=== PATIENT | male | born 1935 | race Caucasian/White ===

== ENCOUNTER 2020-11-22 11:11 | Emergency (ER) | payer MEDICARE, BC ==
[2020-11-22] MEDS ORDERED: Bacitracin 1 PK ONE (11:41)
[2020-11-22] MEDS ORDERED: Boostrix 0.5 ML (Tdap) VIAL ONE (11:49)
== END 2020-11-22 11:54 | disposition home or self-care (01) ==
LOC: ERS 11:11
DX: S51.002A Unspecified open wound of left elbow, initial encounter (principal); I48.91 Unspecified atrial fibrillation; I10 Essential (primary) hypertension; X58.XXXA Exposure to other specified factors, initial encounter
CPT/HCPCS: 90471; 90715

== ENCOUNTER 2021-05-23 19:10 | Emergency (ER) | payer OTHER, MEDICARE, BC ==
[2021-05-23] MEDS ORDERED: Acetaminophen 500 MG TAB ONE (19:31)
== END 2021-05-23 21:50 | disposition home or self-care (01) ==
LOC: ERS 19:10
DX: S51.011A Laceration without foreign body of right elbow, initial encounter (principal); I10 Essential (primary) hypertension; I48.91 Unspecified atrial fibrillation; W01.0XXA Fall on same level from slipping, tripping and stumbling without subsequent striking against object, initial encounter

== ENCOUNTER 2021-09-15 20:01 | Emergency (ER) | payer MEDICARE, BC ==
[2021-09-15 21:10] LABS: #Lymphocytes 1.7 thou/uL (1.20-3.40); #Monocytes 1.3 thou/uL (0.11-0.59); #Neutrophils 8.5 thou/uL (1.40-6.50); %Basophils 0.3 % (0.0-1.0); %Eosinophils 0.2 % (0.0-10.0); %Neutrophils 73.5 % (42.0-75.0); Hemoglobin 12.9 g/dL (14.0-18.0); Mean Corpuscular HGB CONC 32.6 g/dL (32.0-36.0); Mean Corpuscular Hemoglobin 31.5 pg (27.0-31.0); Mean Corpuscular Volume 96.4 fL (78.0-98.0); Platelet Count 137 thou/uL (130-400); RBC Distribution Width 12.8 % (11.5-14.5); Red Blood Cell (RBC) Count 4.11 mill/uL (4.70-6.10); White Blood Cell (WBC) Count 11.5 thou/uL (4.8-10.8)
[2021-09-15] MEDS ORDERED: Lorazepam 2 MG/ML VIAL ONE (21:11)
[2021-09-15 21:29] LABS: ALT (SGPT) 13 U/L (8-55); AST (SGOT) 17 U/L (5-34); Albumin 3.9 g/dL (3.4-4.8); Alkaline Phosphatase 111 U/L (40-110); Anion Gap 12 mmol/L (10-20); BUN (Urea Nitrogen) 25 mg/dL (8.4-25.7); Bilirubin, Total 0.6 mg/dL (0.2-1.2); Calc. Creatinine Clearance 0 mL/min (70-130); Calcium 9.3 mg/dL (7.8-10.44); Carbon Dioxide 27 mmol/L (23-31); Chloride 103 mmol/L (98-107); Globulin 3.7 g/dL (2.4-3.5); Glucose 130 mg/dL (83-110); Potassium 4.2 mmol/L (3.5-5.1); Protein, Total 7.6 g/dL (5.8-8.1); Sodium 138 mmol/L (136-145)
[2021-09-15] MEDS ORDERED: Piperacillin/Tazobactam 4.5 GM in Sodium Chloride 0.9% 100 ML IVPB SCH (22:15)
[2021-09-15 23:31] LABS: Bacteria/HPF None Seen HPF (None Seen); Bilirubin Negative (Negative); Blood, Urine 2+ (Negative); Clarity Clear (Clear); Glucose, Urine (Dipstick) Normal (Negative); Ketone, Urine Negative (Negative); Leukocyte Negative Leu/uL (Negative); Nitrite Negative (Negative); Protein, Urine (Dipstick) 10 mg/dL (Neg-Trace); Specific Gravity, Urine 1.026 (1.002-1.036); Squamous Epithelial 0-3 HPF (0-3); Urobilinogen Normal mg/dL (Less than 2); WBC/HPF 0-3 HPF (0-3); pH, Urine 5.5 (5.0-9.0)
[2021-09-15 23:58] LABS: Lactic Acid 0.6 mmol/L (0.5-2.2)
== END 2021-09-16 00:18 | disposition short-term general hospital (02) ==
LOC: ERS 20:01
DX: A41.9 Sepsis, unspecified organism (principal); J69.0 Pneumonitis due to inhalation of food and vomit; Z79.899 Other long term (current) drug therapy; Z79.82 Long term (current) use of aspirin; I48.91 Unspecified atrial fibrillation; I10 Essential (primary) hypertension
CPT/HCPCS: 36415; 51701; 70450; 71045; 72125; 72170; 80053; 81003; 81015; 83605; 85025; 87040; 87077; 87086; 87149; 93005; 96361; 96365; 96375; J2060; J2543; J3490

== ENCOUNTER 2021-11-26 13:04 | Inpatient (IN) | payer MEDICARE, BC ==
[~2021-11-26 13:04] MED LIST: Iopamidol-370 76% 500 ML 1 ML ONE
[2021-11-26] MEDS ORDERED: Piperacillin/Tazobactam 4.5 GM VIAL ONE (13:38)
[2021-11-26 13:49] LABS: Hemoglobin 13.3 g/dL (14.0-18.0); Mean Corpuscular HGB CONC 31.4 g/dL (32.0-36.0); Mean Corpuscular Volume 98.9 fL (78.0-98.0); Platelet Count 117 thou/uL (130-400); RBC Distribution Width 13.2 % (11.5-14.5); Red Blood Cell (RBC) Count 4.28 mill/uL (4.70-6.10); White Blood Cell (WBC) Count 1.1 thou/uL (4.8-10.8)
[2021-11-26] MEDS ORDERED: Acetaminophen 325 MG TAB ONE (13:52)
[2021-11-26 13:59] LABS: INR-International Normal Ratio 1.2; Prothrombin Time 14.8 sec (12.0-14.7)
[2021-11-26 14:00] LABS: PTT 30.2 sec (22.9-36.1)
[2021-11-26 14:01] LABS: Actual Bicarbonate (HCO3v) 22 mEq/L (22-28); Analyzer IN Cardio ER; Base Excess -1.9 mEq/L (-2.0 to +3.0); Calcium, Ionized (venous) 1.07 mmol/L (1.16-1.32); Chloride (VBG) 109 mmol/L (98-106); Hemoglobin (Hb) 14.4 g/dL (12.6-17.4); Potassium (VBG) 3.56 mmol/L (3.70-5.30); Sodium 144.4 mmol/L (133-146); pH (venous) 7.42 (7.32-7.43)
[2021-11-26] MEDS ORDERED: Vancomycin HCl 500 MG VIAL ONE (14:10)
[2021-11-26] MEDS ORDERED: Vancomycin 1 GM/200 ML BAG ONE (14:10)
[2021-11-26 14:19] LABS: ALT (SGPT) 19 U/L (8-55); AST (SGOT) 31 U/L (5-34); Alkaline Phosphatase 133 U/L (40-110); Anion Gap 21 mmol/L (10-20); BUN (Urea Nitrogen) 36 mg/dL (8.4-25.7); Bilirubin, Total 0.8 mg/dL (0.2-1.2); CK (CPK) 207 U/L (30-200); Calc. Creatinine Clearance 0 mL/min (70-130); Calcium 9.6 mg/dL (7.8-10.44); Carbon Dioxide 19 mmol/L (23-31); Chloride 107 mmol/L (98-107); Estimated GFR 57; Globulin 4.4 g/dL (2.4-3.5); Glucose 126 mg/dL (83-110); Lipase 10 U/L (8-78); Magnesium 2.1 mg/dL (1.6-2.6); Potassium 3.6 mmol/L (3.5-5.1); Protein, Total 8.4 g/dL (5.8-8.1); Sodium 143 mmol/L (136-145)
[2021-11-26 14:24] LABS: Phosphorus 1.4 mg/dL (2.3-4.7)
[2021-11-26 14:27] LABS: Band 20 % (5-11); Lymphocytes 28 % (21-51); MDiff Complete? YES; Neutrophil 51 % (42-75); Platelet Morphology Comment Appears Decreased; Polychromasia SLIGHT = 2-3 cells (100X) (0-2/hpf); Reflex for Review?? YES
[2021-11-26 16:43] LABS: Bilirubin Negative (Negative); Blood, Urine 2+ (Negative); Clarity Clear (Clear); Glucose, Urine (Dipstick) Normal (Negative); Ketone, Urine Negative (Negative); Leukocyte 25 Leu/uL (Negative); Nitrite Negative (Negative); Protein, Urine (Dipstick) 20 mg/dL (Neg-Trace); Specific Gravity, Urine 1.018 (1.002-1.036); Squamous Epithelial 0-3 HPF (0-3); Urobilinogen Normal mg/dL (Less than 2)
[2021-11-26 16:45] LABS: Bacteria/HPF 1+ HPF (None Seen)
[2021-11-26 17:34] LABS: Lactic Acid 5.1 mmol/L (0.5-2.2)
[2021-11-26] MEDS ORDERED: Acetaminophen 325 MG TAB PO PRN (17:39)
[2021-11-26] MEDS ORDERED: Piperacillin/Tazobactam 3.375 GM in Sodium Chloride 0.9% 100 ML IVPB SCH (18:00)
[2021-11-26] MEDS ORDERED: Potassium Chloride 20 MEQ in Lactated Ringer's 1,000 ML IV SCH (18:00)
[2021-11-26] MEDS ORDERED: Ondansetron PF 4 MG/2 ML Vial ONE (18:21)
[2021-11-26] MEDS ORDERED: Piperacillin/Tazobactam 3.375 GM VIAL ONE (19:27)
[2021-11-26] MEDS: Piperacillin/Tazobactam 3.375 GM in Sodium Chloride 0.9% 100 ML IVPB SCH (19:33)
[2021-11-26] MEDS ORDERED: Digoxin 0.5 MG/2 ML AMP SLOW IVP SCH (20:15)
[2021-11-26 21:27] LABS: SARS-CoV-2 NAA Rapid Test DETECTED (NotDetected)
[2021-11-26] MEDS ORDERED: Acetaminophen 650 MG Suppository ONE (21:27)
[2021-11-26] MEDS: Potassium Chloride 20 MEQ in Lactated Ringer's 1,000 ML IV SCH (22:17)
[2021-11-26 22:37] VITALS: BMI 23.2
[2021-11-27] MEDS: Piperacillin/Tazobactam 3.375 GM in Sodium Chloride 0.9% 100 ML IVPB SCH ×2 (01:45→10:11)
[2021-11-27] MEDS ORDERED: Sodium Chloride 0.9% 250 ML IV SCH (04:15)
[2021-11-27 05:20] LABS: ALT (SGPT) 25 U/L (8-55); AST (SGOT) 47 U/L (5-34); Albumin 2.9 g/dL (3.4-4.8); Alkaline Phosphatase 92 U/L (40-110); Anion Gap 17 mmol/L (10-20); BUN (Urea Nitrogen) 39 mg/dL (8.4-25.7); Bilirubin, Total 0.6 mg/dL (0.2-1.2); Calc. Creatinine Clearance 32 mL/min (70-130); Calcium 8.1 mg/dL (7.8-10.44); Carbon Dioxide 19 mmol/L (23-31); Chloride 112 mmol/L (98-107); Estimated GFR 37; Globulin 2.9 g/dL (2.4-3.5); Glucose 89 mg/dL (83-110); Potassium 3.8 mmol/L (3.5-5.1); Protein, Total 5.8 g/dL (5.8-8.1); Sodium 144 mmol/L (136-145)
[2021-11-27] MEDS: Potassium Chloride 20 MEQ in Lactated Ringer's 1,000 ML IV SCH (05:46)
[2021-11-27 05:47] LABS: Lactic Acid 3.1 mmol/L (0.5-2.2)
[2021-11-27 06:02] LABS: Band 43 % (5-11); Hemoglobin 9.9 g/dL (14.0-18.0); Hypochromia SLIGHT = 6-15 cells (100X) (0-5/hpf); Lymphocytes 10 % (21-51); MDiff Complete? YES; Mean Corpuscular HGB CONC 32.4 g/dL (32.0-36.0); Mean Corpuscular Hemoglobin 31.8 pg (27.0-31.0); Mean Corpuscular Volume 98.1 fL (78.0-98.0); Mean Platelet Volume 8.8 fL (7.4-10.4); Monocytes 2 % (0-10); Neutrophil 45 % (42-75); Platelet Count 95 thou/uL (130-400); Platelet Morphology Comment Appears Decreased; RBC Distribution Width 13.3 % (11.5-14.5); Red Blood Cell (RBC) Count 3.13 mill/uL (4.70-6.10); White Blood Cell (WBC) Count 21.4 thou/uL (4.8-10.8)
[2021-11-27] MEDS ORDERED: Lorazepam 2 MG/ML VIAL SLOW IVP PRN (12:27)
[2021-11-27 21:06] VITALS: BP 148/77; TEMP 99.1
== END 2021-11-27 21:37 | disposition hospice, home (50) | DRG 871 ==
LOC: ERS 13:04 → ERHOLD 17:02 → 2NO 22:14
PROVIDERS: ADMIT Student in an Organized Health Care Education/Training Program; ATTEND Student in an Organized Health Care Education/Training Program
PROC: 5A2204Z Restoration of Cardiac Rhythm, Single (ICD-10-PCS; principal; 2021-11-26)
PROC: 8E0ZXY6 Isolation (ICD-10-PCS; 2021-11-26)
PROC: 3E03329 Introduction of Other Anti-infective into Peripheral Vein, Percutaneous Approach (ICD-10-PCS; 2021-11-26)
DX: A41.9 Sepsis, unspecified organism (principal); S32.401A Unspecified fracture of right acetabulum, initial encounter for closed fracture; U07.1 COVID-19; R65.21 Severe sepsis with septic shock; D61.818 Other pancytopenia; Z66 Do not resuscitate; Z51.5 Encounter for palliative care; J45.909 Unspecified asthma, uncomplicated; Z96.1 Presence of intraocular lens; I48.0 Paroxysmal atrial fibrillation; F03.90 Unspecified dementia, unspecified severity, without behavioral disturbance, psychotic disturbance, mood disturbance, and anxiety; W18.30XA Fall on same level, unspecified, initial encounter; E86.0 Dehydration; S30.0XXA Contusion of lower back and pelvis, initial encounter; M89.9 Disorder of bone, unspecified; E03.9 Hypothyroidism, unspecified; I10 Essential (primary) hypertension; M10.9 Gout, unspecified; Z96.653 Presence of artificial knee joint, bilateral; E83.39 Other disorders of phosphorus metabolism; Z78.1 Physical restraint status; Z91.013 Allergy to seafood; Z79.82 Long term (current) use of aspirin; Z79.899 Other long term (current) drug therapy; Z98.890 Other specified postprocedural states; Z87.891 Personal history of nicotine dependence; Z98.49 Cataract extraction status, unspecified eye; Z85.46 Personal history of malignant neoplasm of prostate
CPT/HCPCS: 36415; 70450; 71045; 72125; 74177; 80053; 81003; 81015; 82550; 82805; 83605; 83690; 83735; 84100; 84145; 84443; 84484; 85025; 85060; 85610; 85730; 87040; 87077; 87086; 87149; 87186; 93005; 94760; J2060; J2405; J2543; J3370; J3480; J3490; J7030; J7120; Q9967; U0002